=== PATIENT | male | born 1970 | race African-American/Black ===

== ENCOUNTER 2017-06-23 18:45 | Emergency (ER) | payer OTHER ==
[~2017-06-23] VITALS: Ht 175.3 cm; Wt 89.3 kg
[2017-06-23] MEDS ORDERED: AMLODIPINE BESYL5 MG PO (19:10)
[2017-06-23] MEDS ORDERED: ALBUTEROL17 GM INH (19:11)
[2017-06-23] MEDS ORDERED: ADVAIR 250-501 EACH INH (19:11)
[2017-06-23] MEDS ORDERED: PRENATAL FORMU1 EACH PO (19:12)
[2017-06-23] MEDS ORDERED: VITAMIN D1000 UNI2 PO (19:12)
[2017-06-23] MEDS ORDERED: BLOOD THINNER (19:13)
== END 2017-06-23 20:09 | disposition home or self-care (01) ==
LOC: SED 18:45
DX: S80.862A Insect bite (nonvenomous), left lower leg, initial encounter (principal); I10 Essential (primary) hypertension; F17.200 Nicotine dependence, unspecified, uncomplicated; Z91.030 Bee allergy status; Z79.899 Other long term (current) drug therapy; W57.XXXA Bitten or stung by nonvenomous insect and other nonvenomous arthropods, initial encounter; Y92.9 Unspecified place or not applicable
CPT/HCPCS: 99283

== ENCOUNTER 2017-06-26 16:49 | Emergency (ER) | payer OTHER ==
[~2017-06-26 16:49] MED LIST: ADVAIR 250-501 EACH INH; ALBUTEROL17 GM INH; AMLODIPINE BESYL5 MG PO; BLOOD THINNER; PRENATAL FORMU1 EACH PO; VITAMIN D1000 UNI2 PO
[2017-06-26 17:54] LABS: BASOPHIL# 0.1 X10e3 (0-0.3); BASOPHIL% 1.1 % (0-2.5); EOSINOPHIL# 0.1 X10e3 (0-0.7); EOSINOPHIL% 2.9 % (0.0-7.0); HEMATOCRIT 44.2 % (38.0-50.0); LYMPHOCYTE# 1.3 X10e3 (1.0-3.5); MEAN CELL VOLUME 83.6 FL (83-96); MEAN CORPUSCULAR HEMOGLOBIN 28.3 PG (28-34); MEAN CORPUSCULAR HGB CONC 33.9 g/dL (30-36); MEAN PLATELET VOLUME 7.7 FL (6.5-11.5); MONOCYTE# 0.4 X10e3 (0-1.0); MONOCYTE% 8.8 % (3.0-12.0); NEUTROPHIL# 2.9 X10e3 (1.5-7.1); NEUTROPHIL% 60.2 % (40-75); PLATELET COUNT 267 X10e3 (140-420); RED BLOOD COUNT 5.29 X10e (3.90-5.60); RED CELL DISTRIBUTION WIDTH 14.3 % (11.0-15.5); WHITE BLOOD COUNT 4.9 X10e3 (4.0-10.5)
[2017-06-26 18:09] LABS: DIFF IND NO
[2017-06-26 18:19] LABS: CALCIUM SERUM 8.9 mg/dL (8.4-10.2); CREATININE SERUM 1.1 mg/dL (0.6-1.4); GLOM FILT RATE Estimated 93.5 mL/min (>60); POTASSIUM 3.6 mmol/L (3.5-5.1)
== END 2017-06-26 18:39 | disposition home or self-care (01) ==
LOC: SED 16:49
PROVIDERS: Physician Assistant
DX: L02.416 Cutaneous abscess of left lower limb (principal); L03.116 Cellulitis of left lower limb; I10 Essential (primary) hypertension; J45.909 Unspecified asthma, uncomplicated; F17.210 Nicotine dependence, cigarettes, uncomplicated; Z85.038 Personal history of other malignant neoplasm of large intestine; Z98.890 Other specified postprocedural states; Z79.899 Other long term (current) drug therapy; Z88.5 Allergy status to narcotic agent
CPT/HCPCS: 10060; 36415; 80048; 85025; 87040; 96365; 99283; J3370

== ENCOUNTER 2017-06-28 14:04 | Emergency (ER) | payer OTHER | END 2017-06-28 14:54 | disposition home or self-care (01) | LOC: SED 14:04 | DX: Z48.817 Encounter for surgical aftercare following surgery on the skin and subcutaneous tissue (principal); I10 Essential (primary) hypertension; F17.200 Nicotine dependence, unspecified, uncomplicated; Z91.038 Other insect allergy status; Z79.899 Other long term (current) drug therapy | CPT/HCPCS: 99282 ==